=== PATIENT | female | born 1995 | race Hispanic/Latino ===

== ENCOUNTER 2021-01-27 11:52 | Inpatient (IN) | payer MEDICAID, OTHER ==
[2021-01-27] MEDS ORDERED: Promethazine HCl 25 MG/ML VIAL IM PRN ×3 (12:05→21:19)
[2021-01-27] MEDS ORDERED: Ibuprofen 800 MG TAB PO PRN (12:05)
[2021-01-27] MEDS ORDERED: Methylergonovine 0.2 MG/ML VIAL IM PRN (12:05)
[2021-01-27] MEDS ORDERED: Butorphanol Tartrate 1 MG/ML VIAL SLOW IVP PRN (12:05)
[2021-01-27] MEDS ORDERED: Acetaminophen 500 MG TAB PO PRN (12:05)
[2021-01-27] MEDS ORDERED: Carboprost 250 MCG/ML AMP IM PRN (12:05)
[2021-01-27] MEDS ORDERED: Diphenoxylate HCl/Atropine Tablet PO PRN (12:05)
[2021-01-27] MEDS ORDERED: HYDROcodone/Acetaminophen 5/325 mg Tablet PO PRN (12:05)
[2021-01-27] MEDS ORDERED: hydrALAZINE 20 MG/ML VIAL SLOW IVP PRN ×2 (12:05→21:19)
[2021-01-27] MEDS ORDERED: Lidocaine 1% (PF) 30 ML VIAL SC PRN (12:05)
[2021-01-27] MEDS ORDERED: Ondansetron PF 4 MG/2 ML Vial IVP PRN ×3 (12:05→21:19)
[2021-01-27] MEDS ORDERED: Misoprostol 200 MCG TAB PR PRN (12:05)
[2021-01-27] MEDS ORDERED: NS w/ Oxytocin 30 units 500 ML IVPB SCH (12:15)
[2021-01-27] MEDS ORDERED: NS w/ Oxytocin 30 units 500 ML IV SCH ×3 (12:15→21:30)
[2021-01-27] MEDS: Lactated Ringer's 1,000 ML IV SCH ×3 (12:30→17:01)
[2021-01-27 13:13] LABS: Hemoglobin 10.9 g/dL (12.0-15.5); Mean Corpuscular HGB CONC 31.1 g/dL (32.0-36.0); Mean Corpuscular Hemoglobin 22.9 pg (27.0-33.0); Mean Corpuscular Volume 73.9 fl (81.6-98.3); Mean Platelet Volume 9.3 fl (7.4-10.4); Platelet Count 285 10x3/uL (150-450); RBC Distribution Width 16.7 % (11.5-14.5); Red Blood Cell (RBC) Count 4.75 10x6/uL (3.90-5.03); White Blood Cell (WBC) Count 10.9 10x3/uL (3.5-10.5)
[2021-01-27 13:53] LABS: Syphilis Antibody Nonreactive (Nonreactive); Syphilis Antibody Index 0.04 S/CO (<1.00 Non-Reactive)
[2021-01-27 13:54] LABS: HBSAg Index 0.21 S/CO (0-0.99); Hep B Surf Ag Non-Reactive S/CO (NonReactive)
[2021-01-27 14:21] VITALS: BMI 30.8
[2021-01-27 14:47] LABS: SARS-CoV-2 NAA Rapid Test Not Detected (NotDetected)
[2021-01-27] MEDS ORDERED: Bupivacaine 0.25% HCL 30 ML VIAL ONE (15:30)
[2021-01-27] MEDS ORDERED: Fentanyl 2 mcg/Bup 0.1% Cadd 100 ML ONE (15:38)
[2021-01-27] MEDS ORDERED: Hydrocerin (Eucerin) Cream 120 gm Jar TOP PRN (16:20)
[2021-01-27] MEDS ORDERED: Naloxone HCl 0.4 mg/ml Vial IVP PRN ×2 (16:20)
[2021-01-27] MEDS ORDERED: Acetaminophen 325 MG TAB PO PRN (16:20)
[2021-01-27] MEDS ORDERED: diphenhydrAMINE 50 MG/ML VIAL IVP PRN (16:20)
[2021-01-27] MEDS ORDERED: Lactated Ringer's 500 ML IV PRN (16:20)
[2021-01-27] MEDS ORDERED: ePHEDrine Sulfate 50 MG/10 ML VIAL SLOW IVP PRN (16:20)
[2021-01-27] MEDS ORDERED: Fentanyl 2 mcg/Bupivacaine 0.1% Cassette 100 ML EPIDURAL SCH (16:30)
[2021-01-27] MEDS ORDERED: Communication Order-Pharmacy FS SCH (16:30)
[2021-01-27] MEDS ORDERED: Benzocaine-Menthol 82.5 ML CAN TOP PRN (21:19)
[2021-01-27] MEDS ORDERED: Preparation H Ointment 28 GM TUBE PR PRN (21:19)
[2021-01-27] MEDS ORDERED: Lanolin Ointment 7 GM TUBE TOP PRN (21:19)
[2021-01-27] MEDS ORDERED: Bisacodyl 10 MG SUPP PR PRN (21:19)
[2021-01-27] MEDS ORDERED: diphenhydrAMINE 25 MG CAP PO PRN (21:19)
[2021-01-27] MEDS ORDERED: Milk Of Magnesia 30 ML UDCUP PO PRN (21:19)
[2021-01-27] MEDS ORDERED: Boostrix 0.5 ML (Tdap) VIAL IM ONE (21:19)
[2021-01-27] MEDS ORDERED: Docusate Calcium (SURFAK) 240 MG CAP PO SCH (21:30)
[2021-01-27] MEDS: Ibuprofen 800 MG TAB PO SCH (22:00)
[2021-01-28] MEDS: HYDROcodone/Acetaminophen 5/325 mg Tablet PO PRN ×2 (02:01→12:02)
[2021-01-28] MEDS: Ibuprofen 800 MG TAB PO SCH ×2 (05:42→14:13)
[2021-01-28] MEDS: Ferrous Sulfate 325 MG TAB PO SCH (07:42)
[2021-01-28] MEDS ORDERED: Docusate Calcium (SURFAK) 240 MG CAP PO SCH (09:00)
[2021-01-28] MEDS ORDERED: Prenatal Vitamin 1 TAB PO SCH (09:00)
[2021-01-28 15:57] VITALS: BP 125/69; TEMP 98.1
== END 2021-01-28 18:55 | disposition home or self-care (01) | DRG 807 ==
LOC: CSHLD 11:52 → CSHPED 20:40
PROVIDERS: ADMIT Family Medicine; ATTEND Family Medicine
PROC: 10E0XZZ Delivery of Products of Conception, External Approach (ICD-10-PCS; principal; 2021-01-27)
DX: O80 Encounter for full-term uncomplicated delivery (principal); Z37.0 Single live birth; Z20.822 Contact with and (suspected) exposure to COVID-19; Z3A.39 39 weeks gestation of pregnancy
CPT/HCPCS: 36415; 85027; 86780; 86850; 86900; 86901; 87340; J2590; J7120; S0020; U0002

== ENCOUNTER 2025-02-12 14:25 | Outpatient (CLI) | payer BC | END 2025-02-12 14:26 | disposition home or self-care (01) | LOC: CSHMAMMO 14:25 | PROVIDERS: ATTEND Obstetrics & Gynecology | DX: N63.21 Unspecified lump in the left breast, upper outer quadrant (principal) | CPT/HCPCS: 77066; G0279 ==